=== PATIENT | male | born 1975 | race African-American/Black ===

== ENCOUNTER 2019-05-26 07:35 | Emergency (ER) | payer MEDICAID, OTHER ==
[~2019-05-26] VITALS: Ht 162.6 cm; Wt 67.7 kg
[2019-05-26 07:38] VITALS: BP 120/67; TEMP 98.8
[2019-05-26 08:07] LABS: BASO # 0.1 (0.0-0.2); BASO % 0.7 % (0.0-2.0); EOS # 0.4 (0.0-0.7); EOS % 3.4 % (0-4.0); GRAN # 7.5 (1.4-6.5); GRAN % 61.5 % (42.2-75.2); LYMPH # 3.1 (1.2-3.4); LYMPH % 25.7 % (20.0-51.0); MEAN CELL VOLUME 99 fl (80.0-100.0); MEAN CORPUSCULAR HGB CONC 34 g/dl (33.0-37.0); MEAN PLATELET VOLUME 10.8 fl (7.4-10.4); MONO # 0.9 (0.1-0.6); MONO % 7.7 % (1.7-9.3); PLATELET COUNT 266 K/mm3 (130-400); RED BLOOD COUNT 2.22 M/mm3 (4.20-5.60); REDCELL DISTRIBUTION WIDTH-CV 21.8 % (11.5-14.5); RETIC # 0.33 M/mm3 (0.02-0.16); RETIC % 14.9 % (0.5-3.52)
[2019-05-26 08:16] LABS: ALBUMIN 4.5 gm/dL (3.5-5.0); BILIRUBIN,TOTAL 1.9 mg/dL (0.0-1.0); CALCIUM 9.1 mg/dL (8.4-10.2); CREATININE, serum 1.03 (0.66-1.25); POTASSIUM 4.3 mmol/L (3.4-5.0); TOTAL PROTEIN 7.8 gm/dL (6.4-8.2)
[2019-05-26 08:48] LABS: HEMOGLOBIN 7.5 g/dl (13.5-18.0); MEAN CORPUSCULAR HEMOGLOBIN 34 pg (27.0-31.0)
[2019-05-26] MEDS ORDERED: PERCOCET 325 MG1 TA2 PO (10:02)
[2019-05-26] MEDS ORDERED: PHENERGAN 25 TA25 MG PO (10:08)
[2019-05-26 11:21] VITALS: PULSE 77
--- NOTE | 2019-05-26 14:27 | NUR ---
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 Patient states he moved with his cousin from [place] and doesn't have transportation to get back home in [place]. Worker provided [employer] bus pamphlet for future need of transportation and gave a taxi voucher to return home after ED visit. Worker tried to reach cousin, per patient's permission, however cousin did not answer and leaving voice mail was not an option. Worker gave a referral to our financial counselor to contact patient and apply for [place] medicaid. Worker provided patient information on [place] medication transportation. Patient currently has [place] Medicaid. Worker collaborated with physician and nursing regarding the above information.
== END 2019-05-26 11:30 | disposition home or self-care (01) ==
LOC: COL.ER 07:35
PROVIDERS: Emergency Medicine
DX: D57.219 Sickle-cell/Hb-C disease with crisis, unspecified (principal)
CPT/HCPCS: J1170; J1630; J2550; J7030

== ENCOUNTER 2019-06-03 07:32 | Emergency (ER) | payer MEDICAID ==
[~2019-06-03] VITALS: Ht 162.6 cm; Wt 67.7 kg
[~2019-06-03 07:32] MED LIST: PERCOCET 325 MG1 TA2 PO; PHENERGAN 25 TA25 MG PO
[2019-06-03 08:26] LABS: MEAN CELL VOLUME 98 fl (80.0-100.0); MEAN CORPUSCULAR HGB CONC 34 g/dl (33.0-37.0); MEAN PLATELET VOLUME 10.4 fl (7.4-10.4); PLATELET COUNT 266 K/mm3 (130-400); RED BLOOD COUNT 1.97 M/mm3 (4.20-5.60); REDCELL DISTRIBUTION WIDTH-CV 23.4 % (11.5-14.5); RETIC # 0.46 M/mm3 (0.02-0.16); RETIC % 23.3 % (0.5-3.52)
[2019-06-03 08:38] LABS: ALANINE AMINOTRANSFERASE 13 U/L (21-72); ALBUMIN 4.3 gm/dL (3.5-5.0); ALKALINE PHOSPHATASE 57 U/L (50-136); ANION GAP 10 mmol/L (7-16); AST,SGOT 38 U/L (15-37); BILIRUBIN,TOTAL 2.3 mg/dL (0.0-1.0); BLOOD UREA NITROGEN 15 mg/dL (9-20); CALCIUM 9.3 mg/dL (8.4-10.2); CARBON DIOXIDE 25 mmol/L (22-30); CHLORIDE 109 mmol/L (98-107); CREATININE, serum 0.99 (0.66-1.25); GLUCOSE 82 mg/dL (74-106); LIPASE 43 U/L (23-300); POTASSIUM 4.7 mmol/L (3.4-5.0); SODIUM 144 mmol/L (137-145); TOTAL PROTEIN 7.6 gm/dL (6.4-8.2)
[2019-06-03 08:45] LABS: HEMATOCRIT 19.2 % (42.0-52.0); HEMOGLOBIN 6.6 g/dl (13.5-18.0); MEAN CORPUSCULAR HEMOGLOBIN 34 pg (27.0-31.0)
[2019-06-03 08:49] LABS: TROPONIN-I < 0.012 ng/mL (0.000-0.035)
[2019-06-03 09:04] LABS: ANISOCYTOSIS 3+; EOSINOPHIL 5 % (0-4); LYMPHOCYTE 30 % (20.0-51.0); MYELOCYTE 1 % (0-0); NEUTROPHILS 56 % (42.0-75.2); NUCLEATED RED BLOOD CELL 12 (0-6); PLATELET ESTIMATE NORMAL (NORMAL); POIKILOCYTOSIS 1+
[2019-06-03 11:50] VITALS: BP 101/51; PULSE 78; TEMP 98
[2019-06-03 12:05] VITALS: BP 106/56; PULSE 60; TEMP 98.1
[2019-06-03 12:35] VITALS: BP 133/90; PULSE 55; TEMP 98.5
[2019-06-03 13:19] VITALS: BP 106/31; PULSE 60; TEMP 98.4
[2019-06-03] MEDS ORDERED: PERCOCET 325 MG1 TA2 PO (14:03)
[2019-06-03 14:17] VITALS: BP 142/67; PULSE 77
== END 2019-06-03 14:17 | disposition home or self-care (01) ==
LOC: COL.ER 07:32
PROVIDERS: Emergency Medicine
DX: D57.00 Hb-SS disease with crisis, unspecified (principal); D57.219 Sickle-cell/Hb-C disease with crisis, unspecified; Z87.891 Personal history of nicotine dependence
CPT/HCPCS: J1170; J1630; J2270; J2550; J3010; J7030; P9016